=== PATIENT | male | born 1990 | race Caucasian/White ===

== ENCOUNTER 2025-01-21 15:40 | Outpatient (AMB) | payer OTHER, SELFPAY ==
[2025-01-21 15:48] VITALS: BP 151/93; PULSE 86; O2SAT 98; BMI 33.1
--- NOTE | 2025-01-21 15:48 | MHC.OFFVIS ---
Vital Signs 01/21/25 15:48 Height 5 ft 9 in Weight 224 lb BMI 33.1 BP 151/93 H Blood Pressure Location Lt brachial Position Sitting Pulse 86 Pulse Oximetry (%) 98 Oxygen Delivery Method Room Air Intake Visit Reasons: Postlaminectomy syndrome w/ Modic Changes Allergies No Known Allergies Allergy (Verified 01/21/25 15:46) HPI Comments Details: Jay is very pleasant 34 years old gentleman who presents in my office with complains on lower back pain. He reports axial back pain which is aggravated both of with forward flexing and backwards flexing. He apparently received several surgeries on his lower back last one was to TLIF [address] Feliz[address] Since then patient complains on severe intractable pain in the lower back. He was under care of [facility]. He recently received MRI of the lumbar spine results of which dictated as below. There were no nerve root compressions demonstrated on that MRI. However the patient received bilateral transforaminal epidural steroid injection at L4, bilateral transforaminal epidural steroid injection at L5. The level of his fusion is L5-S1. Unfortunately none of those procedures helped his pain. The injection into the sacroiliac joint bilateral also did not help his pain. The recent MRI was performed demonstrating Modic type 2 changes at L4 and L5 vertebra. He was referred to me in consideration to perform BVN L4 and L5. He denies difficulty with prolonged sitting. Most pain he experienced with standing and walking. Flexing forward and flexing backwards both aggravate his pain. Although flexing backwards aggravate his pain more than flexing forward. He is working full-time. Weather changes and motions aggravate his pain. In terms of tissue damage he describes his pain as hot burning, scalding, searing, dull, hurting, heavy, spreading, radiating, and piercing. He is currently receiving hydrocodone for his pain. Six months ago he had extensive physical therapy with no help. He uses 10s unit every day with minimal help. He received injections described as above. He received MRI described as above complete dictation see as below. Past medical history significant for arthritis. Surgical history microdiskectomy 12/09/2014. TLIF surgery in 07/17/2019. He denies smoking cigarettes denies drinking alcohol she drinks coffee and caffeinated beverages she denies recreational drugs. Review of Systems Const All systems reviewed & are unremarkable except as noted in HPI and below ENT Reports Normal hearing present Neuro Reports Normal hearing present, Denies Abnormal speech present, Denies confusion and Denies Sensory deficit (Neuro) Psych Denies confusion Physical Exam Vital Signs: Last Vital Signs Pulse 86 01/21/25 15:48 BP 151/93 H 01/21/25 15:48 Pulse Ox 98 01/21/25 15:48 Oxygen Delivery Method Room Air 01/21/25 15:48 BMI result Body Mass Index 33.1 Const General: no acute distress; No confusion Nutritional Appearance: average body habitus and well nourished Orientation/consciousness: patient oriented x3 and No confusion Limitations: no limitations Eyes General: appearance normal, both eyes and all related structures Pupils: Equal, round and reactive pupils present EOM: EOMs intact bilaterally Neck Neck: Yes full ROM Chest Chest palpation & inspection: normal inspection of the chest Resp Effort & Inspection: normal respiratory effort, able to speak in complete sentences, normal respiratory pattern, no audible wheezes and no cough Cardio Jugular venous distension: no JVD GI Inspection: Yes normal to inspection Back/Spine/Pelvis Other: Able to stand on bilateral tiptoes in bilateral heels without difficulty. Flexing forward and flexing backwards aggravate his pain. SLR is negative bilaterally. Lasegue test is negative bilaterally. Leroy test is negative bilaterally. There is tenderness on palpation mostly in the projection of the previous TLIF. No tenderness on palpation in the projection of the bilateral sacroiliac joint. There is minimal tenderness on palpation in projection of the lumbar spine. Valsalva is negative for pain increase. Denies prolonged sitting aggravating his pain. Neuro General: patient oriented x3, gait normal and No confusion Cranial nerves: Yes CN's II-XII intact bilaterally, Yes Equal, round and reactive pupils present, Yes Normal hearing present and Yes Ability to bilaterally elevate shoulders present Speech: No Abnormal speech present Gait exam (Neuro): Normal gait present Motor exam (neuro): 5/5 motor strength present throughout Sensory Exam: No Sensory deficit (Neuro) Extrem General: No pedal edema Psych Speech and movement: Normal speech and movement present Affect: normal affect Attitude: cooperative Thought process: Normal thought process present Thought content: Normal thought content present Insight: Good insight present (Psych) Judgement: Good judgement present (Psych) Results Reviewed Results Reviewed: MRI of the lumbar spine [facility] lumbar radiculopathy back pain findings: The lumbar alignment is unremarkable postoperative changes compatible with TLIF are now present at L5-S1 with bilateral transpedicular screws at L5 and S1 and right-sided intradiscal bone graft. The lumbar vertebral bodies are normal in height. No marrow or paraspinal edema. The L2 L4 and L5 discs are moderately to severely diminished in height with subtle vacuum phenomenon. L1-L2 through L3-L4 disc remain normal in height and signal. Marginal osteophytes at L4-5. The visualized lower thoracic cord and normal in sign and signal. The conus terminates at L1-L2. No epidural fluid collection or cauda equina compression. Fatty atrophy and postoperative changes of the right posterior paraspinal soft tissues. No acute retroperitoneal abnormality. L1-L2 subtle brought left paracentral disc protrusion minimally indenting the ventral thecal sac. No significant change or foraminal stenosis. L2-L3 no central canal or foraminal stenosis L3-L4 no central canal or foraminal stenosis L4-5 mild concentric disc osteophyte complex which is more pronounced with compare with prior examination. Minimal central canal narrowing without new nerve root impingement. Mild foraminal narrowing. L5-S1 postoperative changes as above. Right laminotomy defect. Small marginal osteophytes without significant central canal narrowing or nerve root impingement. The right foramina is degraded and probably minimally narrowed. Mild left foraminal narrowing. MRI lumbar spine was reviewed by the [facility] provider and it revealed adjacent level disease at L4-5 with bulging disc and neural foraminal narrowing as well as Modic type 2 changes in the adjacent L4 and L5 levels. Assessment & Plan Assessment & Plan (1) Vertebrogenic low back pain: Code(s): M54.51 - Vertebrogenic low back pain Category: Medical (2) Postlaminectomy syndrome: Code(s): M96.1 - Postlaminectomy syndrome, not elsewhere classified Category: Medical (3) Chronic pain syndrome: Code(s): G89.4 - Chronic pain syndrome Category: Medical Plan I explained to the patient that I am not fully impressed after his physical exam that his pain is resulting from vertebra genic pain syndrome. The crucial element of this condition is pain with prolonged sitting which is absent in this patient. However I told him that if he wants to I can try L4-L5 BVN intercept with his understanding that the chances to improve his pain is 50 50. Alternatively I believe he is suffering from postlaminectomy syndrome and treatment can not be provided by spinal cord stimulator or intrathecal pain pump. Brochure of Nevro spinal cord stimulator was given to the patient. Brochure of intrathecal pain pump was given to the patient. Patient also was interested in discussing noninvasive way to treat his pain. We discussed today possibility of treat his pain with low-impact aerobic exercise with combination with physical therapy. If he wants to try spinal cord stimulator and/or pain pump he needs to go for psychological evaluation. Brochure of psychological evaluation [employer] point was given to the patient. I will see this patient next time as needed when and ever he will come up with decision.. Patient Instructions: I here by testify that I spent 49 minutes in conversation with this patient as well as planning his care and organizing this note. Coding Level of Care Code New Pt Level 4 (24725) Diagnoses Vertebrogenic low back pain M54.51 Postlaminectomy syndrome M96.1 Chronic pain syndrome G89.4
--- OUTSIDE RECORDS SUMMARY | 2025-01-21 16:50 | XMS_ITS | Encounter Summary ---
Author Organization [facility] Address [address] [place] [id number] Phone Care Team Providers Care Telesales Consultant Name Role Phone Unavailable Primary Care Provider Unavailabl e Encounter Details Date Type Department Care Team (Late st Contact Info) Description 10/14/2017 Conversion Encounter [facility] [address] [id number] Social History Tobacco Use Types Packs/Day Years Used Date Smoking Tobacco: Never Assessed Sex and Gender Information Value Date Recorded Sex Assigned at Not on file Legal Sex Male 6:20 PM EDT Gender Identity Not on file Sexual Orientation Not on file documented as of this encounter Plan of Treatment Not on file documented as of this encounter Visit Diagnoses Not on filedocumented in this encounter
--- OUTSIDE RECORDS SUMMARY | 2025-01-21 16:50 | XMS_ITS | Clinical Summary ---
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 Role Phone Unavailable Primary Care Provider Unavailabl e Immunizations Immunization Administration Dates Next Due DTaP 12/05/1995, 4,06/03/1991,03/27,02/17/1991 Hep B, ped/adol 01/17/1995,04/11/1994,12/20/1993 Hib (PRP-T) 02/17/1995, 2,06/03/1991,03/27 IPV 12/05/1995, 4,03/27/1991,02/17 MMR 12/05/1995,03/03/1992 Meningococcal Conj (Menactra) MCV4P 06/06/2007 Td (adult) (Tenivac), 5 Lf t etanus toxoid, PF, adsorbed 11/20/2001 Varicella 05/28/1993 Family History Relation Name Status Comments Father Alive Maternal Grandfather leukemi a Maternal Grandmother Alive Mother Alive Other Alive Siblings: healt hy age: 19 Paternal Grandfather Alive Paternal Grandmother Alive Social History Tobacco Use Types Packs/Day Years Used Date Smoking Tobacco: Never Assessed Sex and Gender Information Value Date Recorded Sex Assigned at Not on file Legal Sex Male 6:20 PM EDT Gender Identity Not on file Sexual Orientation Not on file Plan of Treatment Health Maintenance Due Date Last Done Comments Varicella Vaccines (2 of 2 - 2-dose childhood series) 01/02/1996 05/28/1993 DTaP,Tdap,and Td Vaccines (6 - Tdap) 2001 11/20/2001, 12/05/1995, 12/20/1993, Additional history exists HPV Vaccines (1 - 3-dose SCDM series) 2017 COVID-19 Vaccine ( season) 2024 Influenza Vaccines (#1) 2024 Hepatitis B Vaccines Completed 01/17/1995, 04/11/1994, 12/20/1993 HIB Vaccines Completed 02/17/1995, 11/1991, 06/03/1991, Additional history exists IPV Vaccines Completed 12/05/1995, 11/26, 03/27/1991, Additional history exists MMR Vaccines Completed 12/05/1995, 03/03/1992 Meningococcal Vaccine Completed 06/06/2007 Hepatitis A Vaccines Aged Out No long er eligible based on patient's age to complete this topic Men B Vaccine Aged Out No longer elig ible based on patient's age to complete this topic Pneumococcal Vaccine Aged Out No long er eligible based on patient's age to complete this topic
--- OUTSIDE RECORDS SUMMARY | 2025-01-21 16:50 | XMS_ITS | Clinical Summary ---
Author Organization [facility] [address] [facility] Address [address] [place] [address] Phone Care Team Providers Care Cna Gna Name Role Phone Unavailable Primary Care Provider Unavailabl e Allergies No known active allergies Medications buPROPion XL (WELLBUTRIN XL) 300 mg 24 hr tablet Take 300 mg by mouth every morning. Active dicyclomine (BENTYL) 10 mg capsule TAKE 1 CAPSULE BY MOUTH 4 TIMES A DAY NEEDED FOR ABDOMINAL PAIN, TAKE BEFORE MEALS AND AT BEDTIME 4 Active nortriptyline (PAMELOR) 10 mg capsuleIndication s:Irritable bowel syndrome with both constipation and diarrhea Take 1 capsule (10 mg total) by mouth at bedtime. 30 each 11 4 05/23/20 25 Active Active Problems Problem Noted Date Diagnosed Date Ulcerative colitis confined to rectum ([facility] V24, [facility] V28) 05/23/2024 Irritable bowel syndrome wit h both constipation and diarrhea 05/23/2024 Drug abuse ([facility] V24, [facility] V28) 09/22/2010 Overview (05/09/2024): History of prescription drug abuse Needle phobia 09/22/2010 DDD (degenerative disc disease), lumbar 09/22/19 11 ADHD (attention deficit hyperactivity disorder) 09/21/2010 Anxiety 09/21/2010 Immunizations Name Administration Dates Next Due DTaP (Infanrix) 6wks to less than 7yo ,12/20/1993,06/03/1991,03/27,02/17/1991 [id number]-ULX-SLW (Pentacel) 2mo to less than 5yo 02/17/1995,03/03/1992,06/03/1991,03/27 Hepatitis B Pediatric (Enger ix B; Recombivax HB) to less than 20 yo 01/17/1995,04/11/1994,12/20/1993 IPV Inactivated polio (Ipol) 6wks and older 12/05/1995,12/20/1993,03/27/1991,02/17 Influenza trivalent, with pr eservative (Fluzone; Afluria) 6mo and older 06/10/2012 MMR, measles mumps and rubel la Live (Priorix; M-M-R II) 12mo and older 12/05/1995,03/03/1992 Meningococcal MCV4P 06/06/2007 Td Tetanus diptheria (Tdvax) 7yo and older 11/20/2001 Tdap Tetanus diptheria acell ular pertussis (Boostrix; Adacel) 7yo and older 03/29/2011 Social History Tobacco Use Types Packs/Day Years Used Date Smoking Tobacco: Never Assessed Sex and Gender Information Value Date Recorded Sex Assigned at Not on file Legal Sex Male 6:58 AM EST Gender Identity Not on file Sexual Orientation Not on file Last Filed Vital Signs Vital Sign Reading Time Taken Comments Blood Pressure - - Pulse - - Temperature - - Respiratory Rate - - Oxygen Saturation - - Inhaled Oxygen Concentration - - Weight 105 kg (232 lb) 05/23/2024 7:36 AM EST Height 175.3 cm (5' 9 ) 05/23/2024 7:36 AM EST Body Mass Index 34.26 05/23/2024 7:36 AM EST Plan of Treatment Health Maintenance Due Date Last Done Comments Hepatitis A Vaccines (1 of 2 - Risk 2-dose series) 2009 DTaP,Tdap,and Td Vaccines (8 - Td or Tdap) 03/29/2021 03/29/2011, 11/20/2001, 12/05/1995, Additional history exists HIV Screening 06/26/2023 Hepatitis C Screening 06/26/2023 Social Influencers of Health Screening 06/26/2023 COVID-19 Vaccine ( season) 2024 Depression Screening 05/28/2024 Influenza Vaccine (#1) 2025 06/10/2012 Hepatitis B Vaccines Completed 01/17/1995, 04/11/1994, 12/20/1993 HIB Vaccines Completed 02/17/1995, 11/1991, 06/03/1991, Additional history exists IPV Vaccines Completed 12/05/1995, 01/27, 12/20/1993, Additional history exists MMR Vaccines Completed 12/05/1995, 03/03/1992 Meningococcal ACWY Vaccine Completed 06/06/2007 HPV Vaccines Aged Out No longer eligi ble based on patient's age to complete this topic Meningococcal B Vaccine Aged Out No l onger eligible based on patient's age to complete this topic Pneumococcal Vaccine: Pediatrics (0 to 5 Years) and At-Risk Patients (6 to 49 Years) Aged Out No longer eligible based on patient's age to complete this topic RSV Immunization Patients Under 20 months Aged Out No longer eligible based on patient's age to complete this topic Varicella Vaccines Aged Out No longer eligible based on patient's age to complete this topic Insurance [facility]
--- OUTSIDE RECORDS SUMMARY | 2025-01-21 16:50 | XMS_ITS | Encounter Summary ---
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
== END 2025-01-21 16:08 | disposition home or self-care (01) ==
LOC: HO.PMC 15:41
PROVIDERS: PCP Internal Medicine; Visit Provider Anesthesiology
DX: M54.51 Vertebrogenic low back pain (principal); M96.1 Postlaminectomy syndrome, not elsewhere classified; G89.4 Chronic pain syndrome
CPT/HCPCS: 99204